=== PATIENT | female | born 1970 | race African-American/Black ===

== ENCOUNTER 2017-09-30 11:17 | Emergency (ER) | payer OTHER ==
[~2017-09-30] VITALS: Ht 152.4 cm; Wt 77.1 kg
[2017-09-30 11:37] VITALS: BP 134/68
[2017-09-30] MEDS ORDERED: LIDOCAINE 1% / SOD BICARB 8.4% 20 ML VIAL. IJ ONE (11:45)
[2017-09-30] MEDS ORDERED: DIPHTH,PERTUSS(ACELL),TET TOX 0.5 ML DISP.SYRIN. VAX IM ONE (11:45)
[2017-09-30] MEDS ORDERED: CEPH500T PO (12:33)
--- NOTE | 2017-09-30 12:33 | PHYS DOC ---
Past Medical History Past Medical History: No Pertinent History Past Surgical History: No Surgical History Alcohol Use: Occasionally Drug Use: None Adult General Chief Complaint Chief Complaint: LACERATION/AVULSION HPI HPI Patient is a 47 year old female presents to the emergency department with a history of taking the trash out this morning. Patient states she was cut by broken glass in the trash bag. She has 2 lacerations noted to the left lower leg. Bleeding is currently controlled Review of Systems Review of Systems Constitutional: Denies fever or chills [] Eyes: Denies change in visual acuity, redness, or eye pain [] HENT: Denies nasal congestion or sore throat [] Respiratory: Denies cough or shortness of breath [] Cardiovascular: No additional information not addressed in HPI [] GI: Denies abdominal pain, nausea, vomiting, bloody stools or diarrhea [] : Denies dysuria or hematuria [] Musculoskeletal: Denies back pain or joint pain [] Integument: Denies rash or skin lesions. Laceration times 2 on the left lower leg Neurologic: Denies headache, focal weakness or sensory changes [] Endocrine: Denies polyuria or polydipsia [] All other systems were reviewed and found to be within normal limits, except as documented in this note. Current Medications Current Medications Current Medications Medications (Trade) Dose Ordered Sig/Derrick Start Time Stop Time Status Last Admin Dose Admin Diphtheria/ Tetanus/Acell Pertussis (Boostrix) 0.5 ml ONCE ONCE 09/30/17 11:45 09/30/17 11:46 DC 09/30/17 11:48 0.5 ML Lidocaine/Sodium Bicarbonate (Buffered Lidocaine 1%) 20 ml 1X ONCE 09/30/17 11:45 09/30/17 11:46 DC 09/30/17 11:48 20 ML Allergies Allergies Allergies Coded Allergies Type Severity Reaction Last Updated Verified No Known Drug Allergies 09/30/17 No Physical Exam Physical Exam Constitutional: Well developed, well nourished, no acute distress, non-toxic appearance. [] HENT: Normocephalic, atraumatic, bilateral external ears normal, oropharynx moist, no oral exudates, nose normal. [] Eyes: PERRLA, EOMI, conjunctiva normal, no discharge. [] Neck: Normal range of motion, no tenderness, supple, no stridor. [] Cardiovascular:Heart rate regular rhythm Lungs & Thorax: no respiratory distress noted Skin: Warm, dry, no erythema, no rash. Lacerations times 2 with the top 6 cm and the lower 5 cm Extremities: No tenderness, no cyanosis, no clubbing, ROM intact, no edema. [] Neurologic: Alert and oriented X 3, normal motor function, normal sensory function, no focal deficits noted. [] Psychologic: Affect normal, judgement normal, mood normal. [] Current Patient Data Vital Signs Vital Signs Date Time Temp Pulse Resp B/P (MAP) Pulse Ox O2 Delivery O2 Flow Rate FiO2 09/30/17 11:37 98.3 67 18 97 Room Air 98.3 EKG EKG [] Radiology/Procedures Radiology/Procedures [] Course & Med Decision Making Course & Med Decision Making Pertinent Labs and Imaging studies reviewed. (See chart for details) Both areas irrigated with NS approximately 250 ml. Site was cleaned with betadine, sterile drapes applied with 8 bhargav placed in the upper laceration and 7 bhargav in the lower laceration. Patient was instructed to the area clean and dry. Clean the area with soap and water twice a day and apply antibiotic ointment over the site. Patient was instructed to have the bhargav removed in 7- 10 days [] I've spoken with the patient and/or caregivers. I've explained the patient's condition, diagnosis and treatment plan based on information available to me at this time. I've answered the patient's and/or caregivers questions and addressed any concerns. The patient and/or caregivers have a good understanding the patient's diagnosis, condition and treatment plan as can be expected at this point. Vital signs have been stabilized. The patient's condition is stable for discharge from the emergency department. The patient will pursue further outpatient evaluation with her primary care provider or other designated consulting physician as outlined in the discharge instructions. Patient and/or caregivers are agreeable to this plan of care and follow-up instructions have been explained in detail. The patient and/or caregivers have received these instructions in written format and expressed understanding of these discharge instructions. The patient and her caregivers are aware that if any significant change in condition or worsening of symptoms should prompt him to immediately return to this of the closest emergency department. If an emergent department is not readily available I would encourage him to call 911. Annabelle Disclaimer Annabelle Disclaimer This electronic medical record was generated, in whole or in part, using a voice recognition dictation system. Departure Departure Impression: Primary Impression: Laceration Disposition: 01 HOME, SELF-CARE Condition: STABLE Referrals: IRINEO TESFAYE (PCP) Patient Instructions: Laceration Care, Adult, [id number], Staple Wound Closure, [id number] Additional Instructions: Activity as tolerated. Keep the area clean and dry Medication as prescribed Tylenol or Ibuprofen for pain and discomfort Clean the site with soap and water twice a day, apply antibiotic Watch for signs and symptoms of infection: redness, warmth, tenderness or any yellow/greenish drainage. If this should happen followup with your primary care provider Followup with primary care provider in 7-10 days Return to emergency department as needed for signs and symptoms that becomes worse Scripts Cephalexin (CEPHALEXIN) 500 Mg Tablet 1 TAB PO BID, #20 TAB Prov: LEENA TYSON APRN 09/30/17 LEENA TYSON APRN Sep 30, 2017 12:33
== END 2017-09-30 12:38 | disposition home or self-care (01) ==
LOC: ER 11:17
DX: S81.812A Laceration without foreign body, left lower leg, initial encounter (principal); W25.XXXA Contact with sharp glass, initial encounter; Y93.89 Activity, other specified; Y99.8 Other external cause status; Y92.89 Other specified places as the place of occurrence of the external cause
CPT/HCPCS: 12004; 90471; 90715; 99283-25

== ENCOUNTER 2017-10-10 13:33 | Emergency (ER) | payer OTHER ==
[~2017-10-10] VITALS: Ht 152.4 cm; Wt 77.1 kg
[~2017-10-10 13:33] MED LIST: CEPH500T PO
[2017-10-10 14:07] VITALS: BP 140/89
[2017-10-10 15:15] LABS: OBC FLU VALID
--- NOTE | 2017-10-10 15:19 | PHYS DOC ---
Past Medical History Past Medical History: No Pertinent History Past Surgical History: No Surgical History Alcohol Use: Occasionally Drug Use: None Adult General Chief Complaint Chief Complaint: SUTURE/STAPLE REMOVAL [facility] Patient is a 47 year old female presents to the emergency department stating that she is here for staple removal. Her bhargav were placed in on 09/30 denies any drainage or discharge coming from the site. She had been placed on antibiotics to the fact that she had cut her leg on glass from a trashbags she was taking out site. Her tetanus immunization was updated at that time. Patient also states that she's had a cough and congestion with slight sore throat that started today denies any fever, chills or any nausea or vomiting. Review of Systems Review of Systems Constitutional: Denies fever or chills [] Eyes: Denies change in visual acuity, redness, or eye pain [] HENT: nasal congestion denies sore throat [] Respiratory: cough denies shortness of breath [] Cardiovascular: No additional information not addressed in HPI [] GI: Denies abdominal pain, nausea, vomiting, bloody stools or diarrhea [] : Denies dysuria or hematuria [] Musculoskeletal: Denies back pain or joint pain [] Integument: Denies rash or skin lesions. Presents for staple removal Neurologic: Denies headache, focal weakness or sensory changes [] Endocrine: Denies polyuria or polydipsia [] All other systems were reviewed and found to be within normal limits, except as documented in this note. Allergies Allergies Allergies Coded Allergies Type Severity Reaction Last Updated Verified No Known Drug Allergies 09/30/17 No Physical Exam Physical Exam Constitutional: Well developed, well nourished, no acute distress, non-toxic appearance. [] HENT: Normocephalic, atraumatic, bilateral external ears normal, oropharynx moist, no oral exudates, nose normal. Bilateral tympanic membranes appear to be normal. Throat with no erythematous no exudate noted no anterior cervical adenopathy noted. Eyes: PERRLA, EOMI, conjunctiva normal, no discharge. [] Neck: Normal range of motion, no tenderness, supple, no stridor. [] Cardiovascular:Heart rate regular rhythm, no murmur [] Lungs & Thorax: Bilateral breath sounds clear to auscultation [] Skin: Warm, dry, no erythema, no rash. She with a total 15 bhargav to the left outer leg did appear to be intact with no redness no drainage and no discharge noted. Extremities: No tenderness, no cyanosis, no clubbing, ROM intact, no edema. [] Neurologic: Alert and oriented X 3, normal motor function, normal sensory function, no focal deficits noted. [] Psychologic: Affect normal, judgement normal, mood normal. [] Current Patient Data Vital Signs Vital Signs Date Time Temp Pulse Resp B/P (MAP) Pulse Ox O2 Delivery O2 Flow Rate FiO2 10/10/17 14:07 99.0 88 18 98 Room Air 99.0 EKG EKG [] Radiology/Procedures Radiology/Procedures [] Course & Med Decision Making Course & Med Decision Making Pertinent Labs and Imaging studies reviewed. (See chart for details) [place] were removed with no difficulty. Wound edges appeared to have approximate very well. [] Dragon Disclaimer Dragon Disclaimer This electronic medical record was generated, in whole or in part, using a voice recognition dictation system. Departure Departure Impression: Primary Impression: Visit for suture removal Additional Impression: URI (upper respiratory infection) Disposition: 01 HOME, SELF-CARE Condition: STABLE Referrals: IRINEO TESFAYE (PCP) Patient Instructions: Suture Removal-Brief, Upper Respiratory Infection, Adult , [id number] Additional Instructions: Activity as tolerated Tylenol or Ibuprofen for fever, chills, or generalized body aches Sudafed and mucinex DM may be bought over the counter. Take as directed by manufacture over the counter Followup with your primary care provider in 3-5 days Return to emergency department as needed for signs and symptoms that become worse. Problem Qualifiers Additional Impression: URI (upper respiratory infection) URI type: unspecified URI Qualified Codes: J06.9 - Acute upper respiratory infection, unspecified LEENA TYSON ENGINE LAT[employer] OPERATOR Oct 10, 2017 15:19
== END 2017-10-10 15:34 | disposition home or self-care (01) ==
LOC: ER 13:33
DX: S81.812D Laceration without foreign body, left lower leg, subsequent encounter (principal); J06.9 Acute upper respiratory infection, unspecified; X58.XXXD Exposure to other specified factors, subsequent encounter
CPT/HCPCS: 87804; 99284